=== PATIENT | male | born 1975 | race Caucasian/White ===

== ENCOUNTER 2019-02-14 06:34 | Day surgery (SDC) | payer MEDICAID ==
[~2019-02-14] VITALS: Ht 198.1 cm; Wt 122.7 kg
[~2019-02-14 06:34] MED LIST: ALBU18HF2 IH
[2019-02-14] MEDS ORDERED: normal saline 1000ml 1,000 ML IV PRN (06:50)
[2019-02-14 07:05] VITALS: BP 117/74
[2019-02-14] MEDS ORDERED: PROC5TAB10 PO (07:15)
[2019-02-14] MEDS ORDERED: GABA-532 PO (07:15)
[2019-02-14] MEDS ORDERED: OXYC-580 PO (07:15)
[2019-02-14] MEDS ORDERED: DEC4T PO (07:15)
[2019-02-14] MEDS ORDERED: METO25TA6 PO (07:15)
[2019-02-14] MEDS ORDERED: AMOX-441 PO (07:15)
[2019-02-14] MEDS ORDERED: VITA1CAP PO (07:15)
[2019-02-14] MEDS ORDERED: MORP30CA16 PO (07:15)
[2019-02-14] MEDS ORDERED: ONDA8TAB12 PO (07:15)
[2019-02-14] MEDS ORDERED: fentaNYL/PF 50MCG/1 ML 2ML syringe IV PRN (08:50)
[2019-02-14] MEDS ORDERED: midazolam 2 mg/2 ml injection IV PRN (08:50)
[2019-02-14] MEDS ORDERED: LIDOcaine 1%/PF 5ML 10 MG/ML VIAL SQ ONE (08:50)
[2019-02-14] MEDS ORDERED: ALCOHOL DEHYDRATED IV ONE ×2 (08:55→09:10)
[2019-02-14] MEDS ORDERED: iohexol 300 MG/1 ML 50ml polymer ONE (09:13)
[2019-02-14] MEDS ORDERED: LIDOcaine 1% 30ml preserv. free vial SQ ONE (09:25)
[2019-02-14] MEDS ORDERED: fentaNYL/PF 50MCG/1 ML 2ML syringe ONE (09:55)
[2019-02-14 11:08] VITALS: BP 127/80
[2019-02-14 11:24] VITALS: BP 127/83
[2019-02-14 11:39] VITALS: BP 112/86
[2019-02-14 11:53] VITALS: BP 120/83
== END 2019-02-14 12:10 | disposition home or self-care (01) ==
LOC: SSTAY O 06:34
PROVIDERS: ATTEND Radiology Diagnostic Radiology
DX: I89.8 Other specified noninfective disorders of lymphatic vessels and lymph nodes (principal); Z79.899 Other long term (current) drug therapy; Z82.49 Family history of ischemic heart disease and other diseases of the circulatory system; Z83.3 Family history of diabetes mellitus
CPT/HCPCS: 49185; 99152; 99153; J3010; J7030; Q9967; 49424; J2001

== ENCOUNTER 2019-02-16 06:43 | Day surgery (SDC) | payer MEDICAID ==
[2019-02-16] VITALS (7 sets, daily range): BP systolic 101–131; BP diastolic 53–68
[~2019-02-16] VITALS: Ht 198.1 cm; Wt 118.9 kg
[~2019-02-16 06:43] MED LIST changes: +AMOX-441 PO; +DEC4T PO; +GABA-532 PO; +METO25TA6 PO; +MORP30CA16 PO; +ONDA8TAB12 PO; +OXYC-580 PO; +PROC5TAB10 PO; +VITA1CAP PO
[2019-02-16] MEDS ORDERED: normal saline 1000ml 1,000 ML IV SCH (07:40)
[2019-02-16] MEDS ORDERED: ALCOHOL DEHYDRATED IV ONE (07:50)
[2019-02-16] MEDS ORDERED: fentaNYL/PF 50MCG/1 ML 2ML syringe IV ONE (08:45)
== END 2019-02-16 10:35 | disposition home or self-care (01) ==
LOC: SSTAY O 06:43
PROVIDERS: ATTEND Radiology Diagnostic Radiology
DX: I89.8 Other specified noninfective disorders of lymphatic vessels and lymph nodes (principal); Z79.899 Other long term (current) drug therapy
CPT/HCPCS: 49185; J3010; Q9967; J7030

== ENCOUNTER 2019-02-19 06:28 | Day surgery (SDC) | payer MEDICAID ==
[~2019-02-19] VITALS: Ht 198.1 cm; Wt 119.7 kg
[~2019-02-19 06:28] MED LIST changes: +normal saline 1000ml 1,000 ML IV SCH
[2019-02-19 06:46] VITALS: BP 119/71
[2019-02-19] MEDS ORDERED: ALCOHOL DEHYDRATED IV ONE (08:45)
[2019-02-19] MEDS ORDERED: fentaNYL/PF 50MCG/1 ML 2ML syringe ONE (08:51)
[2019-02-19 08:57] VITALS: BP 123/67
[2019-02-19 09:00] VITALS: BP 116/78
== END 2019-02-19 10:35 | disposition home or self-care (01) ==
LOC: SSTAY O 06:28
PROVIDERS: ATTEND Radiology Diagnostic Radiology
DX: I89.8 Other specified noninfective disorders of lymphatic vessels and lymph nodes (principal); Z08 Encounter for follow-up examination after completed treatment for malignant neoplasm; Z85.72 Personal history of non-Hodgkin lymphomas; F10.21 Alcohol dependence, in remission
CPT/HCPCS: 49185; J3010; J7030

== ENCOUNTER 2019-02-23 08:02 | Day surgery (SDC) | payer MEDICAID ==
[~2019-02-23] VITALS: Ht 195.6 cm; Wt 119.7 kg
[~2019-02-23 08:02] MED LIST changes: -ALBU18HF2 IH; -DEC4T PO; -MORP30CA16 PO; -ONDA8TAB12 PO; -OXYC-580 PO; -PROC5TAB10 PO; -normal saline 1000ml 1,000 ML IV SCH
[2019-02-23] MEDS ORDERED: ALCOHOL DEHYDRATED IV ONE (08:10)
[2019-02-23] MEDS ORDERED: METF500T PO (09:03)
[2019-02-23 09:19] VITALS: BP 104/69
[2019-02-23] MEDS ORDERED: fentaNYL/PF 50MCG/1 ML 2ML syringe IV STA (09:44)
--- NOTE | 2019-02-23 11:00 | NUR ---
ANIA, IR RN ADMINISTERED FENTANYL IVP. DR CHANG INJECTED DEHYDRATED ALCOHOL INTO DRAIN. SUSU RN USED 20ML SYRINGE TO DRAW ALCOHOL OUT OF DRAIN AFTER 1 HOUR. ANIA IR RN RETURNED TO REMOVE DRAIN AND APPLY DRESSING. PROCEDURE SITE STABLE WITH NO S/S OF BLEEDING. PT WAS DISCHARGED HOME. PT HAD ALL BELONGINGS.
== END 2019-02-23 11:55 | disposition home or self-care (01) ==
LOC: SSTAY O 08:02
PROVIDERS: ATTEND Radiology Diagnostic Radiology
DX: I89.8 Other specified noninfective disorders of lymphatic vessels and lymph nodes (principal)
CPT/HCPCS: 49185; J3010; Q9967